=== PATIENT | female | born 1940 | race Hispanic/Latino ===

== ENCOUNTER 2017-03-26 19:03 | Emergency (ER) | payer MEDICARE ==
[2017-03-26 19:04] VITALS: BMI 25.8
[2017-03-26] MEDS ORDERED: Clotrimazole 1% Cream 15 GM TUBE TOP STA (21:09)
[2017-03-26] MEDS ORDERED: Clotrimazole/Betamethasone Cream(15 gm) TOP STA (21:21)
--- NOTE | 2017-03-26 21:38 | C.PDOC ---
History Of Present Illness Pt c/o b/l foot skin changes and toe pain due to abnormal toe nails. Time Seen by Provider: 03/26/17 20:05 Chief Complaint (Nursing): Lower Extremity Problem/Injury History Per: Patient, Family (Son) Onset/Duration Of Symptoms: Days Severity: Moderate Additional History Per: Prior Records Past Medical History Reviewed: Historical Data, Nursing Documentation, Vital Signs Vital Signs: Last Vital Signs Temp 97.1 F L 03/26/17 21:54 Pulse 88 03/26/17 22:36 Resp 20 03/26/17 22:36 BP 199/67 H 03/26/17 22:57 Pulse Ox 98 03/26/17 22:36 - Medical History PMH: Anxiety, Arthritis, Asthma, CAD, Dementia, HTN, Hypercholesterolemia, Hypothyroidism, Chronic Kidney Disease Surgical History: Carotid Endarterectomy Family History: States: Unknown Family Hx - Social History Hx Tobacco Use: No Hx Alcohol Use: No Hx Substance Use: No - Immunization History Hx Tetanus Toxoid Vaccination: No Hx Influenza Vaccination: No Hx Pneumococcal Vaccination: No Review Of Systems Except As Marked, All Systems Reviewed And Found Negative. Constitutional: Negative for: Fever, Weakness Cardiovascular: Negative for: Chest Pain Respiratory: Negative for: Shortness of Breath Gastrointestinal: Negative for: Vomiting, Abdominal Pain Musculoskeletal: Positive for: Foot Pain. Negative for: Neck Pain, Leg Pain Skin: Positive for: Rash Neurological: Negative for: Weakness, Numbness Physical Exam - Physical Exam Appears: Non-toxic, No Acute Distress Skin: Normal Color, Warm, Dry Head: Atraumatic, Normacephalic Eye(s): bilateral: PERRL, EOMI Neck: Normal ROM, Supple Cardiovascular: Rhythm Regular Respiratory: Normal Breath Sounds, No Accessory Muscle Use Gastrointestinal/Abdominal: Soft, No Tenderness Extremity: Normal ROM, No Calf Tenderness, Other (long, thick, discolored and curve toe nails that are rubbing against adjacent toes. Dry flaky skin on b/l feet. ) Pulses: Left Dorsalis Pedis: Decreased, Right Dorsalis Pedis: Decreased Neurological/Psych: Normal Motor, Normal Sensation ED Course And Treatment - Laboratory Results Result Diagrams: 03/26/17 22:26 03/26/17 22:26 Lab Interpretation: No Acute Changes O2 Sat by Pulse Oximetry: 99 Pulse Ox Interpretation: Normal Progress Note: BP is very elevated in the ED, however pt states that she did not take her medications today. Progress - Interventions Interventions:: Observation - Medications Administered Oral: Antihypertensive - Data Reviewed Data Reviewed: Lab, Old records - Patient Status Patient status: Mostly improved - Continuity of Care Discussed patient case with:: Patient, Family-HIPPA compliant, ED Nurse - Patient Plan Patient Plan: Discharge, F/U with PCP, Continue present meds Disposition Counseled Patient/Family Regarding: Studies Performed, Diagnosis, Need For Followup - Disposition Disposition: HOME/ ROUTINE Disposition Time: 23:38 Condition: IMPROVED Additional Instructions: Take your medications as prescribed. Follow up with your primary doctor and with a Data Analysis Assistant (foot doctor) for further evaluation and treatment. Return to the ER if you develop worsening of symptoms or if you have any other concerns. Instructions: Tinea Pedis (ED), Hypertension (ED) - Clinical Impression Clinical Impression: Uncontrolled hypertension, Tinea pedis, Onychomycosis
[2017-03-26 22:32] LABS: BASO # 0.1 K/uL (0.0-0.2); BASO % 0.9 % (0.0-2.0); EOS # 0.5 K/uL (0.0-0.7); EOS % 5.7 % (0.0-4.0); HEMATOCRIT 34.5 % (34.0-47.0); LYMPH # 2.2 K/uL (1.0-4.3); MEAN CELL VOLUME 86.3 fL (81.0-99.0); MEAN CORPUSCULAR HEMOGLOBIN 27.9 pg (27.0-31.0); MEAN CORPUSCULAR HGB CONC 32.4 g/dL (33.0-37.0); MEAN PLATELET VOLUME 9.7 fL (7.2-11.7); MONO # 0.6 K/uL (0.0-0.8); MONO % 6.8 % (0.0-10.0); RED CELL DISTRIBUTION WIDTH 13.6 % (11.5-14.5); WHITE BLOOD COUNT 8.8 K/uL (4.8-10.8)
[2017-03-26 22:37] VITALS: RESP 20
[2017-03-26 22:42] LABS: CHLORIDE 109 mmol/L (98-107); POTASSIUM 3.6 mmol/L (3.6-5.2); SODIUM 143 mmol/L (132-148)
[2017-03-26 22:44] LABS: BILIRUBIN,TOTAL 0.5 mg/dL (0.2-1.3); GFR AFRICAN-AMERICAN > 60
[2017-03-26 22:45] LABS: ALB/GLOB RATIO 1.2 (1.0-2.1); ALKALINE PHOSPHATASE 108 U/L (38-126); ALT/SGPT 23 U/L (9-52); AST/SGOT 23 U/L (14-36); BLOOD UREA NITROGEN 26 mg/dL (7-17); CALCIUM 9.5 mg/dl (8.6-10.4); CARBON DIOXIDE 24 mmol/L (22-30); GLUCOSE,RANDOM 100 mg/dL (65-105); TOTAL PROTEIN 7.3 g/dL (6.3-8.3)
[2017-03-26 23:39] VITALS: BP 113/63; PULSE 65; TEMP 97.3; O2SAT 99
== END 2017-03-26 23:46 | disposition home or self-care (01) ==
LOC: C.ER 19:03
DX: B35.3 Tinea pedis (principal); B35.1 Tinea unguium; I10 Essential (primary) hypertension